=== PATIENT | male | born 1995 | race Caucasian/White ===

== ENCOUNTER 2017-03-26 23:57 | Emergency (ER) | payer OTHER ==
[2017-03-27 01:46] LABS: Urine Bilirubin Negative (Negative); Urine Glucose Negative (Negative); Urine Nitrite Negative (Negative)
[2017-03-27 01:51] LABS: Benzodiazepine Urine Screen None Detected (None Detect)
[2017-03-27 02:04] LABS: Hematocrit 39 % (42-52); Hemoglobin 13.2 g/dl (14.0-18.0); Mean Corpuscular HGB Conc 34 g/dl (31-36); Mean Corpuscular Hemoglobin 29 pg (27-31); Mean Corpuscular Volume 84 fL (80-94); Mean Platelet Volume 7 um3 (7.4-10.4); Red Blood Count 4.61 10^6/ul (4.0-5.4); Red Cell Distribution Width 14 % (10.5-15)
[2017-03-27 02:19] LABS: ALT 13 U/L (7-52); AST 15 U/L (13-39); Acetaminophen < 15 mcg/mL; Albumin 4.3 g/dL (3.2-5.2); Alcohol < 10 mg/dL (<10); Alkaline Phosphatase 55 U/L (34-104); Anion Gap 6 mmol/L (2-11); BUN/Creatinine Ratio 19.7 (8-20); Blood Urea Nitrogen 15 mg/dL (6-24); CO2 Carbon Dioxide 27 mmol/L (22-32); Calcium 9.4 mg/dL (8.6-10.3); Chloride 104 mmol/L (101-111); EGFR African American 169.9 (>60); EGFR Non-African American 132.1 (>60); Globulin 2.8 g/dL (2-4); Glucose 105 mg/dL (70-100); Potassium 3.8 mmol/L (3.5-5.0); Salicylate < 2.50 mg/dL (<30); Sodium 137 mmol/L (133-145); Total Protein 7.1 g/dL (6.4-8.9)
[2017-03-27 02:29] LABS: TSH (Thyroid Stimulating Horm) 2.18 mcIU/mL (0.34-5.60)
--- NOTE | 2017-03-27 07:04 | ED ---
Twin Gonzalez Rebecca, scribed for Mehdi Stern on 03/27/17 at 0100 . Psychiatric Complaint - HPI Summary HPI Summary: Pt is a 21 y/o M who presents to ED c/o depressions with SIs. Pt reports increased depression upon returning to school (late-February) with SIs presenting tonight. 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 Denies self harm and abdominal pain. No diagnosed PMHx depression, though he was given a Dx of Lexapro which he has not taken yet. Confirms he has a counselor at home. - History Of Current Complaint Chief Complaint: EDMentalHealth Time Seen by Provider: 03/27/17 00:47 Hx Obtained From: Patient Onset/Duration: Still Present Character: Depressed Aggravating Factor(s): Recent Stress Alleviating Factor(s): Nothing Associated Signs And Symptoms: Positive: Negative Has Suicidal: Reports: Thoughts Recent Stressor(s): Academics, work, sexuality - Allergies/Home Medications Allergies/Adverse Reactions: Allergies Allergy/AdvReac Type Severity Reaction Status Date / Time No Known Allergies Allergy Verified 03/27/17 00:06 PMH/Surg Hx/FS Hx/Imm Hx Endocrine/Hematology History: Denies: Hx Diabetes Cardiovascular History: Denies: Hx Coronary Artery Disease Infectious Disease History: No Infectious Disease History: Denies: Traveled Outside the [place] in Last 30 Days - Family History Known Family History: Negative: Diabetes - Social History Occupation: Student Alcohol Use: Weekly Substance Use Type: Reports: None Smoking Status (MU): Never Smoked Tobacco Review of Systems Negative: Abdominal Pain Positive: Depressed, Other - SIs All Other Systems Reviewed And Are Negative: Yes Physical Exam - Summary Physical Exam Summary: Appearance: Well appearing, no pain distress Skin: warm, dry, reflects adequate perfusion Head/face: normal Eyes: EOMI, SPEEDY ENT: normal Neck: supple, nontender Respiratory: CTA, breath sounds present Cardiovascular: RRR, pulses symmetrical Abdomen: nontender, soft Bowel: present Musculoskeletal: normal, strength/ROM intact Neuro: normal, sensory motor intact, A&Ox3 Psychiatric: Depressed Triage Information Reviewed: Yes Vital Signs On Initial Exam: Initial Vitals Temp Pulse Resp BP Pulse Ox 98.1 F 54 14 145/76 100 03/27/17 00:03 03/27/17 00:03 03/27/17 00:03 03/27/17 00:03 03/27/17 00:03 Vital Signs Reviewed: Yes Diagnostics - Vital Signs Vital Signs Temp Pulse Resp BP Pulse Ox 03/27/17 00:03 98.1 F 54 14 145/76 100 - Laboratory Result Diagrams: 03/27/17 01:53 03/27/17 01:53 Lab Statement: Any lab studies that have been ordered have been reviewed, and results considered in the medical decision making process. Course/Dx - Course Assessment/Plan: Pt is a 21 y/o M who presents to ED c/o depressions with SIs. Pt reports increased depression upon returning to school (late-February) with SIs presenting tonight. 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 Denies self harm and abdominal pain. No diagnosed PMHx depression, though he was given a Dx of Lexapro which he has not taken yet. Confirms he has a counselor at home. Medically cleared for MHE at 0221. Upon completion of MHE and consultatoin with Dr. Reis, it has been determined that the pt is safe to be D/C to home with Dx of depression. He understands and agrees. Patient medications reviewed this visit. Elevated BP noted and advised to f/u with PCP. - Differential Dx/Clinical Impression Provider Diagnosis: Depression Discharge - Discharge Plan Condition: Stable Disposition: HOME Referrals: [facility] [Primary Care Provider] - The documentation as recorded by the Twin mckeon Rebecca accurately reflects the service I personally performed and the decisions made by , Mehdi Stern.
[2017-03-27 07:35] VITALS: BP 132/61
== END 2017-03-27 08:08 | disposition home or self-care (01) ==
LOC: ED 23:57
DX: F32.9 Major depressive disorder, single episode, unspecified (principal); R45.851 Suicidal ideations
CPT/HCPCS: 36415; 80053; 80307; 80320; 80329; 81003; 84443; 85025; 99285; G0480